=== PATIENT | male | born 1995 | race Caucasian/White ===

== ENCOUNTER 2021-12-15 06:22 | Inpatient (IN) ==
[2021-12-15] MEDS ORDERED: SODIUM CHLORIDE 0.9% 1000ML 1,000 ML IV SCH (06:45)
--- NOTE | 2021-12-15 07:14 | Emergency Department Note ---
History of Present Illness General Chief complaint: Seizure Stated complaint: Seizure Time Seen by Provider: 12/15/21 06:37 History of Present Illness 26-year-old male presents to the ED with a chief complaint of seizure-like activity. The patient symptoms started around 5 AM. He was with his boyfriend who was awoken by the patient vibrating and being stiff. He states that his eyes were open and he looked panicked. His initial seizure lasted for about a minute. EMS then witnessed also some stiffening that lasted for about a minute during transport. He was brought to the ED for evaluation. He does have history of some addiction and drug use in the past although he is believed to be clean. The patient's boyfriend has known him for about 7 months. No additional formation available. Patient is not able to provide information at this time. Home Medications Medication Instructions Recorded Confirmed Type sertraline 25 mg tablet 25 mg PO DAILY 12/15/21 12/15/21 History Allergies Allergy/AdvReac Type Severity Reaction Status Date / Time No Known Allergies Allergy Unverified 12/15/21 08:19 Past Med/Surg History Social History Smoking Status: Current every day smoker Tobacco Type: Cigarettes Preferred Language: Slovenian Feels Safe at Home: Yes Review of Systems A total of 10 systems reviewed and were otherwise negative Physical Exam Vital Signs Vital Signs - 24 hr 12/15/21 06:30 12/15/21 06:56 12/15/21 07:35 Temperature 37.2 C Temperature Source Oral Pulse Rate 125 H Pulse Rate [Finger] 111 H Pulse Rhythm [Finger] Regular Pulse Strength [Finger] Normal Respiratory Rate 19 17 Respiratory Effort / Characteristics Non-Labored Respiratory Depth Normal Blood Pressure 98/51 L Blood Pressure [Right Arm] 104/55 L Blood Pressure Mean 66 Blood Pressure Mean [Right Arm] 71 Blood Pressure Position [Right Arm] Lying Pulse Oximetry 97 96 94 Oxygen Delivery Method Room Air Room Air Room Air Sepsis Recent Fever Within 48 Hours No Sepsis New/Unexplained Change in Mental Status N/A Sepsis Action Taken by Nursing No Action Required 12/15/21 07:53 12/15/21 09:00 12/15/21 11:00 Temperature Temperature Source Pulse Rate Pulse Rate [Finger] 107 H 99 H 97 H Pulse Rhythm [Finger] Regular Regular Regular Pulse Strength [Finger] Normal Normal Normal Respiratory Rate 20 18 18 Respiratory Effort / Characteristics Non-Labored Non-Labored Non-Labored Respiratory Depth Normal Normal Normal Blood Pressure Blood Pressure [Right Arm] 104/62 113/75 120/80 Blood Pressure Mean Blood Pressure Mean [Right Arm] 76 87 93 Blood Pressure Position [Right Arm] Lying Sitting Lying Pulse Oximetry 97 98 98 Oxygen Delivery Method Room Air Room Air Room Air Sepsis Recent Fever Within 48 Hours Sepsis New/Unexplained Change in Mental Status Sepsis Action Taken by Nursing CONSTITUTIONAL/VITAL SIGNS: Reviewed / noted above. GENERAL: Non-toxic in appearance. INTEGUMENTARY: Warm, dry, and [place]. HEAD: Normocephalic. EYES: without scleral icterus or trauma. ENT/OROPHARYNX: clear and moist. No tongue injury. LYMPHADENOPATHY/NECK: Is supple without lymphadenopathy or meningismus. RESPIRATORY: Clear to auscultation bilaterally. No increased work of breathing. CARDIOVASCULAR: Regular rate and rhythm. GI/ABDOMEN: Soft and nontender. No organomegaly or pulsatile mass. No incontinence EXTREMITIES: Warm and well perfused. BACK: No CVA tenderness. NEUROLOGICAL: Patient opens his eyes and lightly responds but is very drowsy and difficult to get information from. PSYCHIATRIC: Able to assess MUSCULOSKELETAL: Normally developed with good muscle tone. TRIAGE NURSING DOCUMENTATION REVIEWED. Course Administered Medications Discontinued Medications Sodium Chloride (Nss 1000ml) 1,000 mls @ 999 mls/hr IV .Q1H1M [facility] Stop: 12/15/21 07:45 Last Infusion: 12/15/21 07:57 Dose: 999 mls/hr Documented by: [id number] Admin: 12/15/21 06:56 Dose: 999 mls/hr Documented by: [id number] Lidocaine HCl (Xylocaine 1%/Sod Bicarb 20 Ml Vial) Confirm Administered Dose 20 ml INFIL .STK-MED ONE Stop: 12/15/21 09:25 Last Admin: 12/15/21 09:53 Dose: Not Given Documented by: [id number] Ondansetron HCl (Ondansetron Inj 2 Mg/Ml 2 Ml Vial) 4 mg IV NOW STA Stop: 12/15/21 08:43 Last Admin: 12/15/21 08:45 Dose: 4 mg Documented by: [id number] Medical Decision Making Differential Diagnosis Differential includes acute cardiac dysrhythmia, microinfarction, CVA, TIA, dehydration, anemia, electrolyte disturbance, seizure, trauma, intracranial bleeding, acute vascular catastrophe, thoracic aortic dissection, PE, abdominal aortic aneurysm rupture, infection, hypoglycemia, overdose, trauma. Medical Records Attestation: I reviewed the patient's medical records. Home Medications Current Medication List: was personally reviewed by me Laboratory Data Attestation: I reviewed the patient's lab results. Result diagrams: 12/15/21 07:40 12/15/21 06:36 Lab Results 12/15/21 12/15/21 12/15/21 Range/Units 06:36 06:36 06:36 WBC Cancelled RBC Cancelled Hgb Cancelled Hct Cancelled MCV Cancelled MCH Cancelled MCHC Cancelled RDW Std Deviation Cancelled RDW Coeff of Susie Cancelled Plt Count Cancelled MPV Cancelled Immature Gran % (Auto) Cancelled Neut % (Auto) Cancelled Lymph % (Auto) Cancelled [place] % (Auto) Cancelled Eos % (Auto) Cancelled Baso % (Auto) Cancelled Neut # (Auto) Cancelled Lymph # (Auto) Cancelled [place] # (Auto) Cancelled Eos # (Auto) Cancelled Baso # (Auto) Cancelled Immature Gran # (Auto) Cancelled Absolute Nucleated RBC Cancelled Nucleated RBC % (auto) Cancelled Neutrophils % (Manual) Cancelled Band Neutrophils % Cancelled Lymphocytes % (Manual) Cancelled Prolymphocyte % Cancelled Reactive Lymphs % (Man) Cancelled Monocytes % (Manual) Cancelled Eosinophils % (Manual) Cancelled Basophils % (Manual) Cancelled Metamyelocytes % (Man) Cancelled Myelocytes % (Man) Cancelled Promyelocytes % (Man) Cancelled Blast Cells % (Manual) Cancelled Plasma Cell % (Manual) Cancelled Other Cells % Cancelled Nucleated RBC % Cancelled Neutrophils # (Manual) Cancelled Band Neutrophils # Cancelled Total Absolute Neuts Cancelled Lymphocytes # (Manual) Cancelled Prolymphocyte # Cancelled Reactive Lymphs # Cancelled Total Abs Lymphocytes Cancelled Monocytes # (Manual) Cancelled Eosinophils # (Manual) Cancelled Basophils # (Manual) Cancelled Metamyelocytes # (Man) Cancelled Myelocytes # (Manual) Cancelled Promyelocytes # (Man) Cancelled Blast Cells # (Man) Cancelled Plasma Cell # (Manual) Cancelled Other Cells # Cancelled Nucleated RBCs # (Man) Cancelled Hypersegmented Neuts Cancelled Hyposegmented Neuts Cancelled Hypogranular Neuts Cancelled Large Granular Lymphs Cancelled # Lrg Granular Lymphs Cancelled Hairy Cells Cancelled Smudge Cells Cancelled Toxic Granulation Cancelled Toxic Vacuolation Cancelled Dohle Bodies Cancelled Lata Rods Cancelled Platelet Estimate Cancelled Hypogranular Platelets Cancelled Clumped Platelets Cancelled Giant Platelets Cancelled Platelet Satelliting Cancelled RBC Morphology Cancelled Polychromasia Cancelled Hypochromasia Cancelled Poikilocytosis Cancelled Basophilic Stippling Cancelled Anisocytosis Cancelled Microcytosis Cancelled Macrocytosis Cancelled Spherocytes Cancelled Pappenheimer Bodies Cancelled Sickle Cells Cancelled Target Cells Cancelled Tear Drop Cells Cancelled Ovalocytes Cancelled Stomatocytes Cancelled Sa[place] Bodies Cancelled Echinocytes Cancelled Acanthocytes (Spur) Cancelled Rouleaux Cancelled RBC Agglutinates Cancelled Schistocytes Cancelled RBC Morph Comment Cancelled Sezary Cell Cancelled Sodium 137 (136-145) mmol/L Potassium 3.6 (3.5-5.1) mmol/L Chloride 106 (98-107) mmol/L Carbon Dioxide 20 L (21-32) mmol/L Anion Gap 11 (3-11) BUN 5 L (6-23) mg/dl Creatinine 1.06 (0.6-1.4) mg/dl Est Cr Clr Drug Dosing 102.2 ml/min Est GFR ( Amer) 111.7 ml/min Est GFR (Non-Af Amer) 96.4 ml/min BUN/Creatinine Ratio 4.7 L (10-20) Glucose 112 H (70-99(Fasting)) mg/dl Calcium 8.6 (8.5-10.1) mg/dl Magnesium 2.4 (1.7-2.4) mg/dl Total Bilirubin 0.4 (0.2-1.0) mg/dl AST 12 L (13-39) U/L ALT 10 (7-52) U/L Alkaline Phosphatase 65 (34-104) U/L Total Protein 7.3 (6.0-8.3) gm/dl Albumin 4.3 (3.4-5.0) gm/dl Globulin 3.0 (2.5-4.0) gm/dl Albumin/Globulin Ratio 1.4 (0.9-2) TSH 1.152 (0.300-4.500) uIu/ml Urine Color Urine Appearance (Clear) Urine pH (4.5-7.5) Ur Specific [place] (1.000-1.030) Urine Protein (Negative) Urine Glucose (UA) (Negative) Urine Ketones (Negative) Urine Blood (Negative) Urine Nitrite (Negative) Urine Bilirubin (Negative) Urine Urobilinogen (Negative) Ur Leukocyte Esterase (Negative) Urine WBC (Auto) (0-5) /hpf Urine RBC (Auto) (0-4) /hpf U Hyaline Cast (Auto) (0-5) /lpf U Epithel Cells (Auto) (0-5) /lpf Urine Bacteria (Auto) (Negative) Ur Renal Epithelial Cell Amorphous Sediment (None Prsent) Urine Mucus (None Prsent) Salicylates (3.0-30) mg/dl Urine Opiates Screen (Neg) Ur Methadone, Qual (Neg) Acetaminophen (10-30) ug/ml Urine Barbiturates (Neg) Ur Phencyclidine (PCP) (Neg) U Amphetamin/Meth Scrn (Neg) MDMA (Ecstasy) Screen (Neg) U Benzodiazepines Scrn (Neg) Ur Cocaine Metabolite (Neg) U Marijuana (THC) Screen (Neg) Ethyl Alcohol mg/dL (<10.0) mg/dl 12/15/21 12/15/21 12/15/21 Range/Units 06:36 06:36 07:40 WBC 9.06 RBC 4.02 L Hgb 12.7 L Hct 36.3 L MCV 90.3 MCH 31.6 MCHC 35.0 RDW Std Deviation 42.6 RDW Coeff of Susie 12.9 Plt Count 216 MPV 10.9 H Immature Gran % (Auto) 0.3 Neut % (Auto) 71.2 Lymph % (Auto) 17.4 [place] % (Auto) 10.9 Eos % (Auto) 0.1 Baso % (Auto) 0.1 Neut # (Auto) 6.44 Lymph # (Auto) 1.58 [place] # (Auto) 0.99 H Eos # (Auto) 0.01 Baso # (Auto) 0.01 Immature Gran # (Auto) 0.03 H Absolute Nucleated RBC Nucleated RBC % (auto) Neutrophils % (Manual) Band Neutrophils % Lymphocytes % (Manual) Prolymphocyte % Reactive Lymphs % (Man) Monocytes % (Manual) Eosinophils % (Manual) Basophils % (Manual) Metamyelocytes % (Man) Myelocytes % (Man) Promyelocytes % (Man) Blast Cells % (Manual) Plasma Cell % (Manual) Other Cells % Nucleated RBC % Neutrophils # (Manual) Band Neutrophils # Total Absolute Neuts Lymphocytes # (Manual) Prolymphocyte # Reactive Lymphs # Total Abs Lymphocytes Monocytes # (Manual) Eosinophils # (Manual) Basophils # (Manual) Metamyelocytes # (Man) Myelocytes # (Manual) Promyelocytes # (Man) Blast Cells # (Man) Plasma Cell # (Manual) Other Cells # Nucleated RBCs # (Man) Hypersegmented Neuts Hyposegmented Neuts Hypogranular Neuts Large Granular Lymphs # Lrg Granular Lymphs Hairy Cells Smudge Cells Toxic Granulation Toxic Vacuolation Dohle Bodies Lata Rods Platelet Estimate Hypogranular Platelets Clumped Platelets Giant Platelets Platelet Satelliting RBC Morphology Polychromasia Hypochromasia Poikilocytosis Basophilic Stippling Anisocytosis Microcytosis Macrocytosis Spherocytes Pappenheimer Bodies Sickle Cells Target Cells Tear Drop Cells Ovalocytes Stomatocytes Saenz-[place] Bodies Echinocytes Acanthocytes (Spur) Rouleaux RBC Agglutinates Schistocytes RBC Morph Comment Sezary Cell Sodium (136-145) mmol/L Potassium (3.5-5.1) mmol/L Chloride (98-107) mmol/L Carbon Dioxide (21-32) mmol/L Anion Gap (3-11) BUN (6-23) mg/dl Creatinine (0.6-1.4) mg/dl Est Cr Clr Drug Dosing ml/min Est GFR ( Amer) ml/min Est GFR (Non-Af Amer) ml/min BUN/Creatinine Ratio (10-20) Glucose (70-99(Fasting)) mg/dl Calcium (8.5-10.1) mg/dl Magnesium (1.7-2.4) mg/dl Total Bilirubin (0.2-1.0) mg/dl AST (13-39) U/L ALT (7-52) U/L Alkaline Phosphatase (34-104) U/L Total Protein (6.0-8.3) gm/dl Albumin (3.4-5.0) gm/dl Globulin (2.5-4.0) gm/dl Albumin/Globulin Ratio (0.9-2) TSH (0.300-4.500) uIu/ml Urine Color Urine Appearance (Clear) Urine pH (4.5-7.5) Ur Specific [place] (1.000-1.030) Urine Protein (Negative) Urine Glucose (UA) (Negative) Urine Ketones (Negative) Urine Blood (Negative) Urine Nitrite (Negative) Urine Bilirubin (Negative) Urine Urobilinogen (Negative) Ur Leukocyte Esterase (Negative) Urine WBC (Auto) (0-5) /hpf Urine RBC (Auto) (0-4) /hpf U Hyaline Cast (Auto) (0-5) /lpf U Epithel Cells (Auto) (0-5) /lpf Urine Bacteria (Auto) (Negative) Ur Renal Epithelial Cell Amorphous Sediment (None Prsent) Urine Mucus (None Prsent) Salicylates < 3.0 L (3.0-30) mg/dl Urine Opiates Screen (Neg) Ur Methadone, Qual (Neg) Acetaminophen < 3 L (10-30) ug/ml Urine Barbiturates (Neg) Ur Phencyclidine (PCP) (Neg) U Amphetamin/Meth Scrn (Neg) MDMA (Ecstasy) Screen (Neg) U Benzodiazepines Scrn (Neg) Ur Cocaine Metabolite (Neg) U Marijuana (THC) Screen (Neg) Ethyl Alcohol mg/dL < 10.0 (<10.0) mg/dl 12/15/21 12/15/21 Range/Units 08:03 08:03 WBC RBC Hgb Hct MCV MCH MCHC RDW Std Deviation RDW Coeff of Susie Plt Count MPV Immature Gran % (Auto) Neut % (Auto) Lymph % (Auto) [place] % (Auto) Eos % (Auto) Baso % (Auto) Neut # (Auto) Lymph # (Auto) [place] # (Auto) Eos # (Auto) Baso # (Auto) Immature Gran # (Auto) Absolute Nucleated RBC Nucleated RBC % (auto) Neutrophils % (Manual) Band Neutrophils % Lymphocytes % (Manual) Prolymphocyte % Reactive Lymphs % (Man) Monocytes % (Manual) Eosinophils % (Manual) Basophils % (Manual) Metamyelocytes % (Man) Myelocytes % (Man) Promyelocytes % (Man) Blast Cells % (Manual) Plasma Cell % (Manual) Other Cells % Nucleated RBC % Neutrophils # (Manual) Band Neutrophils # Total Absolute Neuts Lymphocytes # (Manual) Prolymphocyte # Reactive Lymphs # Total Abs Lymphocytes Monocytes # (Manual) Eosinophils # (Manual) Basophils # (Manual) Metamyelocytes # (Man) Myelocytes # (Manual) Promyelocytes # (Man) Blast Cells # (Man) Plasma Cell # (Manual) Other Cells # Nucleated RBCs # (Man) Hypersegmented Neuts Hyposegmented Neuts Hypogranular Neuts Large Granular Lymphs # Lrg Granular Lymphs Hairy Cells Smudge Cells Toxic Granulation Toxic Vacuolation Dohle Bodies Lata Rods Platelet Estimate Hypogranular Platelets Clumped Platelets Giant Platelets Platelet Satelliting RBC Morphology Polychromasia Hypochromasia Poikilocytosis Basophilic Stippling Anisocytosis Microcytosis Macrocytosis Spherocytes Pappenheimer Bodies Sickle Cells Target Cells Tear Drop Cells Ovalocytes Stomatocytes Saenz-[place] Bodies Echinocytes Acanthocytes (Spur) Rouleaux RBC Agglutinates Schistocytes RBC Morph Comment Sezary Cell Sodium (136-145) mmol/L Potassium (3.5-5.1) mmol/L Chloride (98-107) mmol/L Carbon Dioxide (21-32) mmol/L Anion Gap (3-11) BUN (6-23) mg/dl Creatinine (0.6-1.4) mg/dl Est Cr Clr Drug Dosing ml/min Est GFR ( Amer) ml/min Est GFR (Non-Af Amer) ml/min BUN/Creatinine Ratio (10-20) Glucose (70-99(Fasting)) mg/dl Calcium (8.5-10.1) mg/dl Magnesium (1.7-2.4) mg/dl Total Bilirubin (0.2-1.0) mg/dl AST (13-39) U/L ALT (7-52) U/L Alkaline Phosphatase (34-104) U/L Total Protein (6.0-8.3) gm/dl Albumin (3.4-5.0) gm/dl Globulin (2.5-4.0) gm/dl Albumin/Globulin Ratio (0.9-2) TSH (0.300-4.500) uIu/ml Urine Color Yellow Urine Appearance Cloudy A (Clear) Urine pH 7.0 (4.5-7.5) Ur Specific [place] 1.017 (1.000-1.030) Urine Protein Trace H (Negative) Urine Glucose (UA) Negative (Negative) Urine Ketones Negative (Negative) Urine Blood Negative (Negative) Urine Nitrite Negative (Negative) Urine Bilirubin Negative (Negative) Urine Urobilinogen Positive H (Negative) Ur Leukocyte Esterase Negative (Negative) Urine WBC (Auto) 1-5 (0-5) /hpf Urine RBC (Auto) 0-4 (0-4) /hpf U Hyaline Cast (Auto) 0 (0-5) /lpf U Epithel Cells (Auto) >30 H (0-5) /lpf Urine Bacteria (Auto) Negative (Negative) Ur Renal Epithelial Cell Not Reportable Amorphous Sediment Present A (None Prsent) Urine Mucus Present A (None Prsent) Salicylates (3.0-30) mg/dl Urine Opiates Screen Neg (Neg) Ur Methadone, Qual Neg (Neg) Acetaminophen (10-30) ug/ml Urine Barbiturates Neg (Neg) Ur Phencyclidine (PCP) Neg (Neg) U Amphetamin/Meth Scrn Neg (Neg) MDMA (Ecstasy) Screen Pos H (Neg) U Benzodiazepines Scrn Neg (Neg) Ur Cocaine Metabolite Neg (Neg) U Marijuana (THC) Screen Neg (Neg) Ethyl Alcohol mg/dL (<10.0) mg/dl Imaging Data Radiologist's Impression: Head CT 12/15/21 06:[address] DOSE: 614.27 mGy.cm HISTORY: Seizure. TECHNIQUE: Multiaxial CT images of the head were performed without the use of i ntravenous contrast. Automated exposure control was utilized for this study. A dose lowering technique was utilized adhering to the principles of ALARA. Comparison: None. Findings: The paranasal sinuses and mastoid air cells are clear. There are p oststernotomy changes in the maxilla which are partially visualized. Motion artifact at the high convexity. Similar-appearing punctate hyperdense foci within the brain consistent with artifact. The calvarium and skull base are intact. The ventricles and sulci are within normal limits. There is no mass, hematoma, midline shift, or acute infarct. Impression: No acute intracranial abnormality. Similar-appearing punctate hyperdense foci within the brain consistent with artifact. ACT 112: Negative or not required by law. Electronically signed by: Evelio Vasquez M.D. 12/15/2021 7:46 AM ECG Data Attestation: I personally reviewed and interpreted this ECG as follows: Additional Comments: Twelve-lead EKG: Sinus tach at a rate of 117. No ST elevation. No PVCs. Normal QTC. MDM Narrative 26-year-old male presents with seizure-like activity in the setting of possible drug use. No history of seizures. No trauma. Previous history of addiction. Vital signs reveal tachycardia.The patient's CT scan of the brain did not show acute process. CBC and chemistry panel was unremarkable. TSH was normal. EKG showed a sinus tach. Tylenol and salicylates are negative. Alcohol was negative. Toxicology screen was positive for MDMA. During the patient's ED stay, he did have one episode where he began to stare. There was no focal or tonic-clonic seizure activity. After the patient was here for about 4 or more hours, the patient began to become more alert and awake. He is felt to be stable for discharge home. Impression & Plan Altered mental status, Seizure-like activity Discharge Plan Visit Data Chief Complaint: Seizure Stated Complaint: Seizure ED Provider: Medardo Price Discharge Problem: Altered mental status, Seizure-like activity Patient Disposition: Home - Self-Care Discharge Instructions Activity Restrictions/Additional Instructions: Follow-up with your doctor for further care and evaluation in 1-2 days if symptoms persist. Return to the emergency department for worsening or new symptoms or any concerns. You have been examined and treated today on an emergency basis only. This is not a substitute for, or an effort to provide, complete comprehensive medical care. It is impossible to recognize and treat all injuries or illnesses in a single emergency department visit. It is therefore important that you follow up closely with your doctor. Call as soon as possible for an appointment. Forms Stand Alone Forms: My [facility], Virtual Emergency Department, Important Visit Information Prescriptions Prescriptions: No Action sertraline 25 mg tablet 25 mg PO DAILY RF: 0 Referrals Referrals: PCP,NO [Physician] - Discharge Problem: Altered mental status Qualifiers: Altered mental status type: transient alteration of awareness Qualified Code(s): R40.4 - Transient alteration of awareness
[2021-12-15 07:19] LABS: Albumin Globulin Ratio 1.4 (0.9-2); Albumin Level 4.3 gm/dl (3.4-5.0); BUN Creatinine Ratio 4.7 (10-20); Bilirubin,Total 0.4 mg/dl (0.2-1.0); Calcium 8.6 mg/dl (8.5-10.1); Creatinine Clr Calc Pharmacy 102.2 ml/min; Est GFR (African American) 111.7 ml/min; Est GFR (Non-African American) 96.4 ml/min; Magnesium 2.4 mg/dl (1.7-2.4); Potassium 3.6 mmol/L (3.5-5.1); Total Protein 7.3 gm/dl (6.0-8.3)
--- NOTE | 2021-12-15 07:47 | CT Scan Report ---
HEAD CT NONCONTRAST CT DOSE: 614.27 mGy.cm HISTORY: Seizure. TECHNIQUE: Multiaxial CT images of the head were performed without the use of intravenous contrast. A utomated exposure control was utilized for this study. A dose lowering technique was utilized adheri ng to the principles of ALARA. Comparison: None. Findings: The paranasal sinuses and mastoid air cells are clear. There are poststernotomy changes in the maxilla which are partially visualized. Motion artifact at the high convexity. Similar-appearing punctate hyperdense foci within the brain consistent with artifact. The calvarium and skull base are intact. The ventricles and sulci are within normal limits. There is no mass, hematoma, midline shift, or acute infarct. Impression: No acute intracranial abnormality. Similar-appearing punctate hyperdense foci within the brain consis tent with artifact. ACT 112: Negative or not required by law. Electronically signed by: Evelio Vasquez M.D. 12/15/2021 7:46 AM
[2021-12-15 07:49] LABS: Basophils # (auto) 0.01 K/uL (0-0.2); Basophils % (auto) 0.1 %; Eosinophils # (auto) 0.01 K/uL (0-0.5); Eosinophils % (auto) 0.1 %; Hematocrit (blood only) 36.3 % (42-52); Hemoglobin 12.7 g/dL (14.0-18.0); Immature Granulocytes # (auto) 0.03 K/uL (0.00-0.02); Immature Granulocytes % (auto) 0.3 %; Lymphocytes # (auto) 1.58 K/uL (1.2-3.4); Lymphocytes % (auto) 17.4 %; Mean Corpuscular Hemoglobin 31.6 pg (25-34); Mean Corpuscular Volume 90.3 fL (80-100); Mean Platelet Volume 10.9 fL (7.4-10.4); Monocytes # (auto) 0.99 K/uL (0.11-0.59); Monocytes % (auto) 10.9 %; Neutrophils # (auto) 6.44 K/uL (1.4-6.5); Neutrophils % (auto) 71.2 %; Platelet Count 216 K/uL (130-400); RDW Coefficient of Variation 12.9 % (11.5-14.5); RDW Standard Deviation 42.6 fL (36.4-46.3); Red Blood Count 4.02 M/uL (4.7-6.1); White Blood Count 9.06 K/uL (4.8-10.8)
[2021-12-15 08:22] LABS: Appearance Urine Cloudy (Clear); Bacteria Urine Automated Negative (Negative); Bilirubin Urine Negative (Negative); Blood Urine Negative (Negative); Color Urine Yellow; Epithelial Cell Urine Auto >30 /lpf (0-5); Glucose Urine UA Negative (Negative); Ketones Urine Negative (Negative); Leukocyte Esterase Urine Negative (Negative); Nitrite Urine Negative (Negative); Protein Urine Trace (Negative); RBC Urine Automated 0-4 /hpf (0-4); Specific Gravity Urine 1.017 (1.000-1.030); Urobilinogen Urine Positive (Negative)
[2021-12-15 08:23] LABS: Acetaminophen < 3 ug/ml (10-30); Salicylate < 3.0 mg/dl (3.0-30)
[2021-12-15 08:39] LABS: Cast Urine Automated 0 /lpf (0-5); Mucus Urine Present (None Prsent)
[2021-12-15 08:41] LABS: Amorphous Sediment Urine Present (None Prsent)
[2021-12-15] MEDS ORDERED: ONDANSETRON INJ 2 MG/ML 2 ML VIAL IV STA (08:42)
[2021-12-15 08:53] LABS: Amphetamines+Metham, Urine Neg (Neg); Barbiturates, Urine Neg (Neg); Benzodiazepine, Urine Neg (Neg); Cocaine, Urine Neg (Neg); MDMA (Ecstacy), Urine Pos (Neg); Methadone, Urine Neg (Neg); Opiate, Urine Neg (Neg); Phencyclidine, Urine Neg (Neg)
--- NOTE | 2021-12-15 09:15 | Electrocardiogram Report ---
Test Reason : Blood Pressure : / mmHG Vent. Rate : 117 BPM Atrial Rate : 117 BPM P-R Int : 140 ms QRS Dur : 096 ms QT Int : 356 ms P-R-T Axes : 068 075 058 degrees QTc Int : 496 ms Sinus tachycardia Otherwise normal ECG No previous ECGs available Confirmed by Checo Malagon ([id number]) on 12/15/2021 9:14:57 AM Referred By: Confirmed By:Checo Malagon
[2021-12-15] MEDS ORDERED: XYLOCAINE 1%/SOD BICARB 20 ML VIAL INFIL ONE (09:24)
--- NOTE | 2021-12-15 14:31 | History & Physical Report ---
Date of Service December 15, 2021 Assessment & Plan (1) Seizure-like activity: Plan: Patient is 26-year-old male with PMH PTSD, anxiety, possible history TBI in 1997 (reports mother with history of Munchhausen by proxy and patient is unsure of his exact past medical history) presented to ER for reported seizure-like activity today described as several episodes of body stiffening, staring followed by episode of drowsiness and slurred speech. Episodes last 10-15 second s. No reported seizure activity in past. In ER pt afebrile, sinus tachycardia, BP stable, no hypoxia. No leukocytosis, no significant electrolyte abnormality Urine drug screen positive MDMA - further testing pending. Negative ETOH, acetaminophen, salicylates CT head: no acute intracranial abnormality In ER was given 1L NSS Admit tele Seizure precautions NPO for now Neuro checks EEG Neurology consult Psychiatry consult CBC, BMP in am (2) PTSD (post-traumatic stress disorder): (3) Anxiety: Plan: Reported history PTSD, anxiety Continue sertraline DVT Prophylaxis SCDs Follows with Dr Lorelei Alonso PA-C for routine care Pt was seen and care coordinated with Dr Obregon. See addendum History of Present Illness Chief Complaint: Seizure-like activity Primary Care Provider: Lorelei Alonso PA-C Patient is 26-year-old male with PMH PTSD, anxiety, possible history TBI in 1997 (reports mother with history of Munchhausen by proxy and patient is unsure of his exact past medical history) presented to ER for reported seizure-like activity today. History obtained from patient's boyfriend who is at bedside, and outpatient chart review. Patient's boyfriend states he picked him up last night and he seemed to be "a little off" and off balance, and drowsy. He reports that he asked patient if he took any medications or drugs, alcohol, or attempted to harm himself and patient reported "no". He states he slept in the car on the way home and when woke up seemed to be back to baseline. Reports went to bed and this morning woke up at 5 AM and patient was noted to be stiffening his body in bed. Patient boyfriend reports that patient often has night terrors where he will be thrashing around and when he is awaken the thrashing will stop. Reports when he woke patient up this morning patient seemed to be "out of it" and not talking. It is reported that while patient being transferred to hospital by EMS he had approximately 10-second episode of stiffening and staring off. In ER is reported by ER staff the patient had couple episodes of 10 to 15 seconds body stiffening and staring, followed by patient appearing drowsy and having slurred and mumbled speech. Last episode was 1350 today. Currently patient is awake, appears drowsy. Is able to answer some questions however is mumbling his speech. No reported loss of control of bowel or bladder. Boyfriend thinks patient may have bitten his tongue. Reports episode of emesis today. Boyfriend reports patient has been having intermittent dizzy episodes for months. Has seen PCP however he reports patient did not have medical insurance until 12/07/21, so limited workup had been completed. Reports is to follow up with [facility] in the future. Denies any known fever/chills, reported SOB or cough or diarrhea. States patient had one COVID-10 vaccine in 02/2021. Boyfriend reports patient previously used marijuana, thinks he last used in 08/2021. He is unaware of illicit drug use, however he does not live with patient so he isn't sure. He reports patient takes sertraline 25mg daily. He states he used to take other psych medication. Williamiend reports patient is to follow up with out patient psychiatry. Further ROS, PMH, Social history, unobtainable at this time secondary to patients slurred speech. Outpatient records reviewed on 11/25/2021 had negative urine tox screen Negative HIV testing on 07/28/2021 and 10/28/2021, negative GC, CT, RPR in 10/2021 A1c: 5.4 in 10/30 14 day negative stripper in 11/30: CONCLUSIONS: Final Interpretation Patient had a min HR of 48 bpm, max HR of 190 bpm, and avg HR of 78 bpm. Predominant underlying rhythm was Sinus Rhythm. Isolated SVEs were rare (<1.0%), and no SVE Couplets or SVE Triplets were present. Isolated VEs were rare (<1.0%), and no VE Couplets or VE Triplets were present. The patient submitted 16 event markers which correlated with sinus and sinus tachycardia only Allergies Allergy/AdvReac Type Severity Reaction Status Date / Time erythromycin base Allergy Anaphylaxis Verified 12/15/21 14:16 Sulfa (Sulfonamide Allergy Anaphylaxis Verified 12/15/21 14:16 Antibiotics) Home Medications Medication Instructions Recorded Confirmed Type ondansetron 4 mg disintegrating 4 mg PO Q6 PRN #14 tab 12/15/21 Rx tablet sertraline 25 mg tablet 25 mg PO DAILY 12/15/21 12/15/21 History Past Med/Surg History Medical History (Updated 12/15/21 @ 15:48 by Zeenat Anderson PA-C) Anxiety PTSD (post-traumatic stress disorder) Surgical History (Updated 12/15/21 @ 15:48 by Zeenat Anderson PA-C) H/O nasal septoplasty History maxillofacial surgery - h/o underbite Family History (Updated 12/15/21 @ 15:49 by Zeenat Anderson PA-C) Brother Diabetes DM I Grandfather (Maternal) Hypertension Mother Lupus Social History Smoking Status: Current every day smoker Tobacco Type: Cigarettes Second Hand Exposure: Yes; Do You Dip or Chew Tobacco: No; Tobacco Cessation Education Requested by Patient: No Hx Alcohol Use: No Hx Substance Use: Yes Last Used Substance Other:: >5 years ago Preferred Language: Montenegrin Communication Ability: Impaired Communication Ability Comment: At baseline, pt has no deficits. Currently, pt is difficult to understand Executive Director Of Marketing Required: No Beliefs That Will Affect Care: None Current Living Situation: Spouse Feels Safe at Home: Yes Safety Concerns: Feels Safe At This Time Assistive Devices: None Review of Systems Review of Systems: Unobtainable due to cognitive status Physical Exam Physical Exam: General: no acute distress, WDWN Head: normocephalic, atraumatic Eyes: PERRL, EOM's intact, conjunctiva non-injected, anicteric ENT: normal inspection external ears, nose, mucous membranes moist Neck: supple, trachea midline Lungs: clear, no respiratory distress, no wheezing/rhonchi/rales CV: tachycardia, rate 108, regular rhythm, no murmur, no pretibial edema Abd: normal BS, soft, non-tender Ext: no cyanosis, no erythema, no calf tenderness Neuro: Drowsy, but alert and oriented to 3. Has slurred speech currently and uses fingers to say the date. face is strong and symmetric, tongue midline, no lacerations noted, shoulder shrug intact, patient hesistant to test bulb inspector strength, after repeat asking, bulb inspector strength intact bilaterally, slow to move extremities however is able to do so and strength upper and lower extremities 5/5 Skin: warm, dry, +old healed linear scars to forearms and thighs Results & Data Results & Data ([facility]) Vital Signs (Past 12 Hours) Vital Signs Temp Pulse Pulse Resp BP BP Pulse Ox 12/15/21 13:50 127 H 20 106/48 L 93 12/15/21 11:00 97 H 18 120/80 98 12/15/21 09:00 99 H 18 113/75 98 12/15/21 07:53 107 H 20 104/62 97 12/15/21 07:35 111 H 17 104/55 L 94 12/15/21 06:56 96 12/15/21 06:30 37.2 C 125 H 19 98/51 L 97 Laboratory Results Short CBC 12/15/21 12/15/21 Range/Units 06:36 07:40 WBC Cancelled 9.06 Hgb Cancelled 12.7 L Hct Cancelled 36.3 L Plt Count Cancelled 216 BMP 12/15/21 06:36 Sodium 137 Potassium 3.6 Chloride 106 Carbon Dioxide 20 L BUN 5 L Creatinine 1.06 Glucose 112 H Calcium 8.6 Liver Function 12/15/21 Range/Units 06:36 Total Bilirubin 0.4 (0.2-1.0) mg/dl AST 12 L (13-39) U/L ALT 10 (7-52) U/L Alkaline Phosphatase 65 (34-104) U/L Albumin 4.3 (3.4-5.0) gm/dl Urine 12/15/21 Range/Units 08:03 Urine Color Yellow Urine Appearance Cloudy A (Clear) Urine pH 7.0 (4.5-7.5) Ur Specific [place] 1.017 (1.000-1.030) Urine Protein Trace H (Negative) Urine Glucose (UA) Negative (Negative) Diagnostic Findings Head CT 12/15/21 06:[address] DOSE: 614.27 mGy.cm HISTORY: Seizure. TECHNIQUE: Multiaxial CT images of the head were performed without the use of intravenous contrast. Automated exposure control was utilized for this study. A dose lowering technique was utilized adhering to the principles of ALARA. Comparison: None. Findings: The paranasal sinuses and mastoid air cells are clear. There are poststernotomy changes in the maxilla which are partially visualized. Motion artifact at the high convexity. Similar-appearing punctate hyperdense foci within the brain consistent with artifact. The calvarium and skull base are intact. The ventricles and sulci are within normal limits. There is no mass, hematoma, midline shift, or acute infarct. Impression: No acute intracranial abnormality. Similar-appearing punctate hyperdense foci within the brain consistent with artifact. ACT 112: Negative or not required by law. Electronically signed by: Evelio Vasquez M.D. 12/15/2021 7:46 AM Supervising Physician Co-Signing Physician Notes Attending addendum: The patient was seen and examined in the emergency room in presence of his boyfriend He has significant past medical history including PTSD, anxiety and also remote history of possible traumatic brain injury in 1997 apparently has been on sertraline for anxiety/depression He was brought into the emergency room with possible seizure-like activity , generalized weakness and garbled speech which has been going on about 3 hours for now He has been at his usual state of health with normal ambulation and speech 3 hours prior to arrival as per the boyfriend He was not able to give a complete history and his present complaints due to garbled speech and also generalized weakness On examination We can lethargic in bed without any acute distress Hemodynamically stable with tachycardia of 106/min Chestdecreased breath sounds bilaterally but no wheezing or crackles HeartS1-S2, regular Abdomenbenign Extremitiesno edema CNSalert and awake. Drowsy and falls to sleep quite easily. Tries to talk but cannot continue. Pupils are normal and reacting and no eye deviation and no facial asymmetry. Generally weak without any focal sensory and motor deficit. His admission labs, EKG and imaging studies reviewed Noted to have urine tox screen positive for ecstasy No evidence of any infection at this time Questionable seizure-like episodes which lasted about 10 to 40 seconds and associated with flinging type of movements involving the extremities followed by calmness for about 5 minutes and then becomes normalized without any history of self injury, or incontinence. We will consult neurology and psychiatry Agree with assessment and plan as outlined above by SUZAN Sheets DR
[2021-12-15] MEDS ORDERED: ACETAMINOPHEN 325 MG TAB PO PRN (16:14)
--- NOTE | 2021-12-15 18:53 | XRay Report ---
XR chest 1V portable CLINICAL HISTORY: R/O Pneumonia TECHNIQUE: Single frontal radiograph of the chest was obtained. Comparison: None available at the time of this dictation. FINDINGS: No lines and tubes are seen. The cardiomediastinal silhouette is normal. The lungs are clear. No evid ence of pleural effusion or pneumothorax. IMPRESSION: No acute chest disease. ACT 112: Negative or not required by law. Electronically signed by: Stuart Nielson M.D. 12/15/2021 6:52 PM
[2021-12-15] MEDS ORDERED: levETIRAcetam 1,000 MG in 0.9 % SODIUM CHLORIDE 100 ML IV ONE (20:30)
--- NOTE | 2021-12-15 23:02 | Communication Note ---
Date of Service: December 15, 2021
[2021-12-15] MEDS: NSS + 20MEQ KCL 20 MEQ/1,000 ML BAG IV SCH (23:43)
[2021-12-16 07:12] LABS: Hematocrit (blood only) 34.6 % (42-52); Hemoglobin 11.8 g/dL (14.0-18.0); Mean Corpuscular Hemoglobin 31.1 pg (25-34); Mean Corpuscular Hgb Conc 34.1 g/dL (32-36); Mean Corpuscular Volume 91.1 fL (80-100); Mean Platelet Volume 11.1 fL (7.4-10.4); Platelet Count 200 K/uL (130-400); RDW Coefficient of Variation 13.6 % (11.5-14.5); RDW Standard Deviation 45.3 fL (36.4-46.3); White Blood Count 9.54 K/uL (4.8-10.8)
[2021-12-16] MEDS: NSS + 20MEQ KCL 20 MEQ/1,000 ML BAG IV SCH ×2 (07:35→16:31)
[2021-12-16 07:43] LABS: BUN Creatinine Ratio 5.7 (10-20); Calcium 8.4 mg/dl (8.5-10.1); Creatinine Clr Calc Pharmacy 99.8 ml/min; Est GFR (Non-African American) 97.5 ml/min
--- NOTE | 2021-12-16 08:18 | Neurology Consultation ---
Date of Consultation December 16, 2021 Assessment & Plan (1) Seizure-like activity: 1. EEG preminary read no seizure focus 2. MRI brain with and without- r/o seizure focus 3. Keppra loaded in ED and continuing 500 mg q 12 hours 4. no driving for 6 months from last seizure date, no heights, no bathing or swimming alone 5. out patient 72 hour EEG 6. psychiatry for further management of psych issues. (2) PTSD (post-traumatic stress disorder): (3) Anxiety: Supervising Physician Co-Signing Physician Notes Patient was seen and examined. Mother and at bedside. Patient sleeping but following simple commands. Suspect provoked seizure due to trazadone overdose per discussion with . No prior Hx of seizure or childhood epilepsy. Not to have GTC seizure yesterday follow with postical period. On examine abrasion to lip. No clonus. Toes down going. Cuevas negative. tongue midline. Recommend to continue Keppra 500 mg BID for now. Bedside EEG normal. Will need repeat EEG as outpatient likely 72 hour ambulatory. If no further seizures in 6-12 months can stop the Keppra. Discussed with family and agree to plan of care. Patient has neurology apt as outpatient already scheduled. Please page me with any additional questions or concerns. History of Present Illness Reason for Consultation: Seizure like activity Requesting Physician: Milton Gutierres MD Attending Physician: Milton Gutierres MD History of Present Illness Ramana is 26 year old male with PMH- PTSD, anxiety, possible history TBI in 1997 (reports mother with history of M[place]haus[place] by proxy and patient is unsure of his exact past medical history) presented to [facility] 12/15/2021 ER for reported seizure-like activity today described as several episodes of body stiffening, staring followed by episode of drowsiness and slurred speech. Episodes last 10- 15 seconds. No reported seizure activity in past. He had 2 episodes of arm flinging which were witness. He does wake with deep stimulation and answers most questions appropriately denies pain, or weakness. 1 ppd smoker, no EtoH use, no other drugs, +caffeine (soda) Allergies Allergy/AdvReac Type Severity Reaction Status Date / Time erythromycin base Allergy Anaphylaxis Verified 12/15/21 14:16 Sulfa (Sulfonamide Allergy Anaphylaxis Verified 12/15/21 14:16 Antibiotics) Home Medications Medication Instructions Recorded Confirmed Type ondansetron 4 mg disintegrating 4 mg PO Q6 PRN #14 tab 12/15/21 Rx tablet sertraline 25 mg tablet 25 mg PO DAILY 12/15/21 12/15/21 History Patient History Medical History Anxiety PTSD (post-traumatic stress disorder) Surgical History H/O nasal septoplasty History maxillofacial surgery - h/o underbite Family History Brother Diabetes DM I Grandfather (Maternal) Hypertension Mother Lupus Social History Smoking Status: Current every day smoker Tobacco Type: Cigarettes Second Hand Exposure: Yes; Do You Dip or Chew Tobacco: No; Tobacco Cessation Education Requested by Patient: No Hx Alcohol Use: No Hx Substance Use: Yes Last Used Substance Other:: >5 years ago Preferred Language: Omani Communication Ability: Impaired Communication Ability Comment: At baseline, pt has no deficits. Currently, pt is difficult to understand Therapist Occupational Required: No Beliefs That Will Affect Care: None Current Living Situation: Spouse Feels Safe at Home: Yes Safety Concerns: Feels Safe At This Time Assistive Devices: None Review of Systems Review of Systems: All systems reviewed & are unremarkable except as noted in HPI & below Physical Exam Physical Exam: Physical Exam: Constitutional: appearance nourished, healthy and normal Ears, Nose, Mouth and Throat: mucous membranes moist, no injection and skin normal, eyes normal, no laceration to tongue Cardiovascular: normal S-1 and S-2 and regular rate and rhythm Respiratory: course breath sounds Musculoskeletal: no peripheral edema and good distal pulses Skin: no stigmata of neurocutaneous disease noted and normal and intact Eyes: extraocular muscles intact (EOMI) NEUROLOGIC EXAMINATION: Mental status: Alert with deep stimulation, knows he is in a hospital, but not which one, [place], does not know why he is in the hospital Oriented to person Speech fluent with no evidence of aphasia Cranial Nerves smile eye brow raise symmetric Reflexes: Deep tendon reflexes were symmetrical and graded 2/5 down going toes Sensory: light cool touch Coordination: finger to nose Gait/Stance: Posture lying in bed Motor: Negative for pronator drift of out stretched arms with eyes closed. Strength: hand blade aligner biceps triceps 5/5 bilaterally hip flex 5/5 bilaterally Results & Data ([facility]) Vital Signs (Past 12 Hours) Vital Signs Temp Pulse Pulse Resp BP Pulse Ox 12/16/21 07:14 36.5 C 90 18 116/75 99 12/16/21 04:17 36.8 C 88 18 111/72 95 12/16/21 00:00 89 12/15/21 23:11 36.9 C 89 16 112/74 99 Laboratory Results Abnormal lab results 12/15/21 12/15/21 12/15/21 Range/Units 06:36 08:03 08:03 RBC (4.7-6.1) M/uL Hgb (14.0-18.0) g/dL Hct (42-52) % MPV (7.4-10.4) fL Chloride (98-107) mmol/L BUN/Creatinine Ratio (10-20) Calcium (8.5-10.1) mg/dl Urine Appearance Cloudy A (Clear) Urine Protein Trace H (Negative) Urine Urobilinogen Positive H (Negative) U Epithel Cells (Auto) >30 H (0-5) /lpf Amorphous Sediment Present A (None Prsent) Urine Mucus Present A (None Prsent) Salicylates < 3.0 L (3.0-30) mg/dl Acetaminophen < 3 L (10-30) ug/ml MDMA (Ecstasy) Screen Pos H (Neg) 12/16/21 12/16/21 Range/Units 06:55 06:55 RBC 3.80 L (4.7-6.1) M/uL Hgb 11.8 L (14.0-18.0) g/dL Hct 34.6 L (42-52) % MPV 11.1 H (7.4-10.4) fL Chloride 111 H (98-107) mmol/L BUN/Creatinine Ratio 5.7 L (10-20) Calcium 8.4 L (8.5-10.1) mg/dl Urine Appearance (Clear) Urine Protein (Negative) Urine Urobilinogen (Negative) U Epithel Cells (Auto) (0-5) /lpf Amorphous Sediment (None Prsent) Urine Mucus (None Prsent) Salicylates (3.0-30) mg/dl Acetaminophen (10-30) ug/ml MDMA (Ecstasy) Screen (Neg) Diagnostic Findings CT head-No acute intracranial abnormality. Similar-appearing punctate hyperdense foci within the brain consistent with artifact. CXR- no acute findings EEG- no seizure focus
--- NOTE | 2021-12-16 08:34 | Electrocardiogram Report ---
Test Reason : Blood Pressure : / mmHG Vent. Rate : 087 BPM Atrial Rate : 087 BPM P-R Int : 140 ms QRS Dur : 096 ms QT Int : 376 ms P-R-T Axes : 080 063 047 degrees QTc Int : 452 ms Normal sinus rhythm Nondiagnostic lateral Q waves Borderline ECG When compared with ECG of 15-DEC-2021 06:30, No significant change was found Confirmed by Checo Malagon ([id number]) on 12/16/2021 8:33:52 AM Referred By: REFERRED SELF Confirmed By:Checo Malagon
[2021-12-16] MEDS: SERTRALINE HCL 50 MG TABLET PO SCH (08:44)
[2021-12-16] MEDS: levETIRAcetam 500 MG in 0.9 % SODIUM CHLORIDE 100 ML IV SCH ×2 (08:45→20:58)
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
--- NOTE | 2021-12-16 13:39 | Electroencephalogram ---
EEG Procedure Note Date of Service December 16, 2021 Start / End Times Start Time: 10:57 End Time: 11:[address] Obregon History A 26-year-old male admitted with new onset seizure. EEG performed for evaluation epileptiform activity. Home Medication List Medication Instructions Recorded Confirmed Type ondansetron 4 mg disintegrating 4 mg PO Q6 PRN #14 tab 12/15/21 Rx tablet sertraline 25 mg tablet 25 mg PO DAILY 12/15/21 12/15/21 History Inpatient Medication List Levetiracetam 500 mg/ Sodium (Chloride) 105 mls @ 420 mls/hr IV Q12H KELLEN Stop: 01/15/22 08:59 Last Infusion: 12/16/21 09:03 Dose: 0 mls/hr Documented by: [id number] Admin: 12/16/21 08:45 Dose: 420 mls/hr Documented by: [id number] Potassium Chloride/Sodium Chloride (Normal Saline W/20 Meq Kcl) 20 meq in 1,000 mls @ 125 mls/hr IV .Q8H KELLEN; Protocol Stop: 12/16/21 22:59 Last Admin: 12/16/21 07:35 Dose: 125 mls/hr Documented by: [id number] Infusion: 12/16/21 07:35 Dose: 125 mls/hr Documented by: [id number] Admin: 12/15/21 23:43 Dose: 125 mls/hr Documented by: [id number] Sertraline HCl (Sertraline Hcl 50 Mg Tablet) 25 mg PO DAILY KELLEN Stop: 01/15/22 08:59 Last Admin: 12/16/21 08:44 Dose: 25 mg Documented by: [id number] Discontinued Medications Sodium Chloride (Nss 1000ml) 1,000 mls @ 999 mls/hr IV .Q1H1M KELLEN Stop: 12/15/21 07:45 Last Infusion: 12/15/21 07:57 Dose: 999 mls/hr Documented by: [id number] Admin: 12/15/21 06:56 Dose: 999 mls/hr Documented by: [id number] Levetiracetam 1,000 mg/ Sodium (Chloride) 110 mls @ 440 mls/hr IV 2030 ONE Stop: 12/15/21 20:44 Last Infusion: 12/15/21 21:16 Dose: 0 mls/hr Documented by: [id number] Admin: 12/15/21 20:55 Dose: 440 mls/hr Documented by: [id number] Lidocaine HCl (Xylocaine 1%/Sod Bicarb 20 Ml Vial) Confirm Administered Dose 20 ml INFIL .[facility] ONE Stop: 12/15/21 09:25 Last Admin: 12/15/21 09:53 Dose: Not Given Documented by: [id number] Ondansetron HCl (Ondansetron Inj 2 Mg/Ml 2 Ml Vial) 4 mg IV NOW STA Stop: 12/15/21 08:43 Last Admin: 12/15/21 08:45 Dose: 4 mg Documented by: [id number] Description This is a 21 electrode EEG with a single channel dedicated to limited EKG. The electrodes were placed in accordance with the International 10-20 system. REPORT: At the onset of the EEG the patient is awake. The background is symmetric. Posterior dominant rhythm is 9-10 Hz. Anteriorly there is low amplitude beta activity. There was a normal anterior to posterior gradient. There is frequent myogenic or electrode artifact from head motion. Photic stimulation does not induce any abnormalities. High hyperventilation is not performed. No stage 2 sleep transients are recorded. Drowsiness is characterized by reduced blink rate, decreased myogenic artifact and increased theta activity. Interpretation This is a normal awake and drowsy routine EEG. Portions of this record are obscured by electrode artifact from patient motion/head rotation. No epileptiform discharges are seen. No electrographic seizures are recorded.
--- NOTE | 2021-12-16 14:00 | CT Scan Report ---
CT soft tissue neck wo con CLINICAL HISTORY: Right Neck swelling/tender COMPARISON STUDY: No previous studies for comparison. CT DOSE: 296.09 mGy.cm TECHNIQUE: Standard CT of the Neck was performed without IV contrast. A dose lowering technique was utilized adhering to the principles of ALARA. FINDINGS: Salivary glands: Parotid and submandibular salivary glands are within normal limits. The thyroid gland is also within normal limits. Lymph nodes: There are no pathologically enlarged lymph nodes. There is no evidence for soft tissue mass within the neck bilaterally. Airway: The cervical airway is widely patent. The epiglottis and aryepiglottic folds are normal bila terally. The vocal cords are symmetric bilaterally. Vascular structures: No gross vascular abnormalities are seen. Paranasal sinuses:The imaged paranasal sinuses are clear. Osseous structures: No acute osseous abnormalities are identified. IMPRESSION: 1. Negative limited noncontrast CT of the soft tissues of the neck. 2. If the patient's symptoms persist, repeat examination with contrast and marker placed at the site of reported swelling would be recommended. ACT 112: Negative or not required by law. Electronically signed by: Glenn Rios M.D. 12/16/2021 1:58 PM
--- NOTE | 2021-12-16 16:33 | Hospitalist Progress Note ---
Date of Service December 16, 2021 Assessment & Plan (1) Seizure-like activity: Plan: Patient is a 26 yr male with H/O PTSD, anxiety, possible history TBI in 1997 (reports mother with history of [place]haus[place] by proxy and patient is unsure of his exact past medical history) presented to ER for reported seizure-like activity today described as several episodes of body stiffening, staring followed by episode of drowsiness and slurred speech. Episodes last 10-15 seconds. No reported seizure activity in past. Seizure-like activity --CT Head:No acute intracranial abnormality. Similar-appearing punctate hyperdense foci within the brain consistent with artifact. --EEG:This is a normal awake and drowsy routine EEG. Portions of this record are obscured by electrode artifact from patient motion/head rotation. No epileptiform discharges are seen. No electrographic seizures are recorded. Continue Keppra 500 mg twice daily Seizure precautions No driving for 6 months Needs outpatient 72/80 Appreciate neurology input Possible intentional ingestion/suicidal attempt Patient cannot leave AMA Meets 302 Criteria until medically cleared as per psychiatry Appreciate psychiatry input Sitter at bedside (2) PTSD (post-traumatic stress disorder): (3) Anxiety: Plan: Continue sertraline Right neck swelling --CT Neck:Negative limited noncontrast CT of the soft tissues of the neck. If the patient's symptoms persist, repeat examination with contrast and marker placed at the site of reported swelling would be recommended. Consider repeat imaging with contrast if no improvement DVT Px SCDs CODE STATUS Full code Admission and Anticipated Discharge Date Admission Date: December 15, 2021 Subjective Patient is seen and examined at bedside States having generalized weakness Denies of suicidal thoughts Also denies any chest pain, shortness breath, dizziness, nausea, abdominal pain Discussed with psychiatry today Review of Systems Review of Systems: All systems reviewed & are unremarkable except as noted in Subjective Physical Exam Physical Exam: Physical Exam: Vitals signs as noted above General Appearance: Thin, frail, no apparent distress Head: normocephalic, Atraumatic Eyes: normal inspection, EOMI Neck: supple, Trachea midline, R minimal swelling, tender Respiratory/Chest: Normal breath sounds, CTA, No accessory muscle use Cardiovascular: S1, S2, No murmur Abdomen/GI:Soft, Non tender, Bowel sounds present Extremities/Musculoskeletal:normal inspection, no edema Neurologic/Psych:AAOX3, grossly no focal neurological deficits Skin: normal color, warm, + multiple tattoos Results & Data Results & Data ([facility]) Vital Signs (Past 12 Hours) Vital Signs Temp Pulse Pulse Resp BP Pulse Ox 12/16/21 15:59 36.7 C 78 16 113/71 98 12/16/21 15:54 82 12/16/21 11:25 36.4 C L 85 18 116/75 100 12/16/21 09:33 89 12/16/21 07:14 36.5 C 90 18 116/75 99 Laboratory Results Short CBC 12/16/21 Range/Units 06:55 WBC 9.54 (4.8-10.8) K/uL Hgb 11.8 L (14.0-18.0) g/dL Hct 34.6 L (42-52) % Plt Count 200 (130-400) K/uL BMP 12/16/21 06:55 Sodium 139 Potassium 4.0 Chloride 111 H Carbon Dioxide 21 BUN 6 Creatinine 1.05 Glucose 81 Calcium 8.4 L Cardiac Enzymes 12/15/21 Range/Units 06:36 Total Creatine Kinase 66 (30-223) U/L
[2021-12-17 06:44] LABS: Hematocrit (blood only) 33.4 % (42-52); Hemoglobin 11.3 g/dL (14.0-18.0); Mean Corpuscular Hgb Conc 33.8 g/dL (32-36); Mean Corpuscular Volume 91.8 fL (80-100); Mean Platelet Volume 11.5 fL (7.4-10.4); Platelet Count 195 K/uL (130-400); RDW Standard Deviation 47.2 fL (36.4-46.3); Red Blood Count 3.64 M/uL (4.7-6.1); White Blood Count 7.33 K/uL (4.8-10.8)
[2021-12-17 07:30] LABS: BUN Creatinine Ratio 5.6 (10-20); Calcium 8.1 mg/dl (8.5-10.1); Creatinine Clr Calc Pharmacy 114.9 ml/min; Est GFR (African American) 136.1 ml/min; Est GFR (Non-African American) 117.5 ml/min
[2021-12-17] MEDS: levETIRAcetam 500 MG in 0.9 % SODIUM CHLORIDE 100 ML IV SCH (09:12)
[2021-12-17] MEDS: SERTRALINE HCL 50 MG TABLET PO SCH (09:12)
[2021-12-17] MEDS ORDERED: NICOTINE POLACRILEX 2 MG GUM MT PRN (11:53)
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
[2021-12-17] MEDS ORDERED: NICOTINE 21 MG/24 HR TDSY TD SCH (12:00)
--- NOTE | 2021-12-17 13:04 | Hospitalist Progress Note ---
Date of Service December 17, 2021 Assessment & Plan (1) Seizure-like activity: Plan: Patient is a 26 yr male with H/O PTSD, anxiety, possible history TBI in 1997 (reports mother with history of Munchhausen by proxy and patient is unsure of his exact past medical history) presented to ER for reported seizure-like activity today described as several episodes of body stiffening, staring followed by episode of drowsiness and slurred speech. Episodes last 10-15 seconds. No reported seizure activity in past. Acute Metabolic Encephalopathy Seizure-like activity --CT Head:No acute intracranial abnormality. Similar-appearing punctate hyperdense foci within the brain consistent with artifact. --EEG:This is a normal awake and drowsy routine EEG. Portions of this record are obscured by electrode artifact from patient motion/head rotation. No epileptiform discharges are seen. No electrographic seizures are recorded. Continue Keppra 500 mg twice daily Seizure precautions Needs outpatient 72 hr EEG Appreciate Neurology input Needs follow up with Neurology upon discharge No driving permitted for 6 months until cleared by Neurology Possible intentional trazodone ingestion/suicidal attempt Patient cannot leave AMA Meets 302 Criteria until medically cleared as per psychiatry Appreciate psychiatry input Sitter at bedside Patient refuses drug overdose (2) PTSD (post-traumatic stress disorder): (3) Anxiety: Plan: Continue sertraline Right neck swelling --CT Neck:Negative limited noncontrast CT of the soft tissues of the neck. If the patient's symptoms persist, repeat examination with contrast and marker placed at the site of reported swelling would be recommended. Consider repeat imaging with contrast if no improvement Resolved DVT Px SCDs CODE STATUS Full code Admission and Anticipated Discharge Date Admission Date: December 16, 2021 Subjective Patient is seen and examined at bedside States feeling well today Refuses suicidal thoughts Offers no complaints No seizure activity overnight Discussed with Neurology and Psychiatry today Denies any chest pain, shortness breath, dizziness, nausea, abdominal pain Review of Systems Review of Systems: All systems reviewed & are unremarkable except as noted in Subjective Physical Exam Physical Exam: Physical Exam: Vitals signs as noted above General Appearance: Thin, frail, no apparent distress Head: normocephalic, Atraumatic Eyes: normal inspection, EOMI Neck: supple, Trachea midline, R minimal swelling resolved Respiratory/Chest: Normal breath sounds, CTA, No accessory muscle use Cardiovascular: S1, S2, No murmur Abdomen/GI:Soft, Non tender, Bowel sounds present Extremities/Musculoskeletal:normal inspection, no edema Neurologic/Psych:AAOX3, grossly no focal neurological deficits Skin: normal color, warm, + multiple tattoos Results & Data Results & Data ([facility]) Vital Signs (Past 12 Hours) Vital Signs Temp Pulse Pulse Resp BP Pulse Ox 12/17/21 11:00 36.5 C 95 H 73 18 124/78 98 12/17/21 07:00 36.8 C 80 20 110/69 99 12/17/21 04:18 36.5 C 78 16 105/71 98 Laboratory Results Short CBC 12/17/21 Range/Units 06:02 WBC 7.33 (4.8-10.8) K/uL Hgb 11.3 L (14.0-18.0) g/dL Hct 33.4 L (42-52) % Plt Count 195 (130-400) K/uL BMP 12/17/21 06:02 Sodium 138 Potassium 4.0 Chloride 110 H Carbon Dioxide 23 BUN 5 L Creatinine 0.90 Glucose 88 Calcium 8.1 L
--- NOTE | 2021-12-17 15:44 | Discharge Summary ---
Date of Service December 17, 2021 Admission HPI Per Admitting Provider Patient is 26-year-old male with PMH PTSD, anxiety, possible history TBI in 1997 (reports mother with history of Munchhausen by proxy and patient is unsure of his exact past medical history) presented to ER for reported seizure-like activity today. History obtained from patient's boyfriend who is at bedside, and outpatient chart review. Patient's boyfriend states he picked him up last night and he seemed to be "a little off" and off balance, and drowsy. He reports that he asked patient if he took any medications or drugs, alcohol, or attempted to harm himself and patient reported "no". He states he slept in the car on the way home and when woke up seemed to be back to baseline. Reports went to bed and this morning woke up at 5 AM and patient was noted to be stiffening his body in bed. Patient boyfriend reports that patient often has night terrors where he will be thrashing around and when he is awaken the thrashing will stop. Reports when he woke patient up this morning patient seemed to be "out of it" and not talking. It is reported that while patient being transferred to hospital by EMS he had approximately 10-second episode of stiffening and staring off. In ER is reported by ER staff the patient had couple episodes of 10 to 15 seconds body stiffening and staring, followed by patient appearing drowsy and having slurred and mumbled speech. Last episode was 1350 today. Currently patient is awake, appears drowsy. Is able to answer some questions however is mumbling his speech. No reported loss of control of bowel or bladder. Boyfriend thinks patient may have bitten his tongue. Reports episode of emesis today. Boyfriend reports patient has been having intermittent dizzy episodes for months. Has seen PCP however he reports patient did not have medical insurance until 12/07/21, so limited workup had been completed. Reports is to follow up with [facility] in the future. Denies any known fever/chills, reported SOB or cough or diarrhea. States patient had one COVID-10 vaccine in 02/2021. Boyfriend reports patient previously used marijuana, thinks he last used in 08/2021. He is unaware of illicit drug use, however he does not live with patient so he isn't sure. He reports patient takes sertraline 25mg daily. He states he used to take other psych medication. Boyfriend reports patient is to follow up with out patient psychiatry. Further ROS, PMH, Social history, unobtainable at this time secondary to patients slurred speech. Outpatient records reviewed on 11/25/2021 had negative urine tox screen Negative HIV testing on 07/28/2021 and 10/28/2021, negative GC, CT, RPR in 10/2021 A1c: 5.4 in 10/30 14 day cafeteria monitor in 11/30: CONCLUSIONS: Final Interpretation Patient had a min HR of 48 bpm, max HR of 190 bpm, and avg HR of 78 bpm. Predominant underlying rhythm was Sinus Rhythm. Isolated SVEs were rare (<1.0%), and no SVE Couplets or SVE Triplets were present. Isolated VEs were rare (<1.0%), and no VE Couplets or VE Triplets were present. The patient submitted 16 event markers which correlated with sinus and sinus tachycardia only Admission Exam Per Admitting Provider Physical Exam Physical Exam: General: no acute distress, WDWN Head: normocephalic, atraumatic Eyes: PERRL, EOM's intact, conjunctiva non-injected, anicteric ENT: normal inspection external ears, nose, mucous membranes moist Neck: supple, trachea midline Lungs: clear, no respiratory distress, no wheezing/rhonchi/rales CV: tachycardia, rate 108, regular rhythm, no murmur, no pretibial edema Abd: normal BS, soft, non-tender Ext: no cyanosis, no erythema, no calf tenderness Neuro: Drowsy, but alert and oriented to 3. Has slurred speech currently and uses fingers to say the date. face is strong and symmetric, tongue midline, no lacerations noted, shoulder shrug intact, patient hesistant to test portfolio analyst strength, after repeat asking, portfolio analyst strength intact bilaterally, slow to move extremities however is able to do so and strength upper and lower extremities 5/5 Skin: warm, dry, +old healed linear scars to forearms and thighs Principal Diagnosis Acute Metabolic Encephalopathy Seizure-like activity suspected drug overdose Discharge Data Allergies Allergy/AdvReac Type Severity Reaction Status Date / Time erythromycin base Allergy Anaphylaxis Verified 12/15/21 14:16 Sulfa (Sulfonamide Allergy Anaphylaxis Verified 12/15/21 14:16 Antibiotics) Consultations 12/15/21 14:15 ED Decision to Admit Stat 12/15/21 15:21 Consult Psychiatry Routine 12/15/21 16:14 Consult Neurology Routine Ordered Studies 12/15/21 06:45 CT head/brain wo con Stat 12/16/21 12:34 CT soft tissue neck wo con Urgent Hospital Course (1) Seizure-like activity: Patient is a 26 yr male with H/O PTSD, anxiety, possible history TBI in 1997 (reports mother with history of Munchhausen by proxy and patient is unsure of his exact past medical history) presented to ER for reported seizure-like activity today described as several episodes of body stiffening, staring followed by episode of drowsiness and slurred speech. Episodes last 10-15 seconds. No reported seizure activity in past. Acute Metabolic Encephalopathy Seizure-like activity --CT Head:No acute intracranial abnormality. Similar-appearing punctate hyperdense foci within the brain consistent with artifact. --EEG:This is a normal awake and drowsy routine EEG. Portions of this record are obscured by electrode artifact from patient motion/head rotation. No epileptiform discharges are seen. No electrographic seizures are recorded. Continue Keppra 500 mg twice daily Seizure precautions Needs outpatient 72 hr EEG Appreciate Neurology input Needs follow up with Neurology upon discharge No driving permitted for 6 months until cleared by Neurology Possible intentional trazodone ingestion/suicidal attempt Patient cannot leave AMA Meets 302 Criteria until medically cleared as per psychiatry Appreciate psychiatry input Sitter at bedside Patient refuses drug overdose (2) PTSD (post-traumatic stress disorder): (3) Anxiety: Continue sertraline Right neck swelling --CT Neck:Negative limited noncontrast CT of the soft tissues of the neck. If the patient's symptoms persist, repeat examination with contrast and marker p laced at the site of reported swelling would be recommended. Consider repeat imaging with contrast if no improvement Resolved DVT Px SCDs CODE STATUS Full code Total Time Total Time Spent Total Time Spent (In Minutes): 47 minutes Discharge Plan Discharge Items Patient Disposition: Home - Self-Care Reason For Visit: SEIZURE LIKE ACTIVITY Discharge Diagnosis: Acute Metabolic Encephalopathy Seizure-like activity suspected drug overdose Activity: Per Instructions section Exercise/Sports: Gradually increase as tolerated Driving/Machine Use: Not permitted until cleared by your Neurologist Non-emergency contact: Primary Care Provider and Psychiatrist Call non-emergency contact if: you have any medication questions, your symptoms worsen, your pain is concerning for you and you have a fever Follow-up/Referrals: Lorelei Alonso PA-C [Primary Care Provider] - Diet: Regular Addtl Attending Provider Instructions: Follow-up with your primary care physician Mariely Rivera PA-C on December 24, 2021 at 12:20 PM Follow-up with your psychiatrist Dr. Sanchez 12/23/21 as scheduled Follow-up with your neurologist Dr.Benjamin Enrrique Salgado in 4 weeks as advised --- No driving permitted for 6 months from last seizure date. Further recommendations as per your neurologist. Seek immediate medical attention if your symptoms reoccur or worsen Please take all medications as instructed on discharge list below. Please call if you have any questions or problems. You can reach a [facility] hospitalist on duty at [facility] 24 hours a day by calling [phone] Pending Studies at Discharge: No Stand-Alone Forms: My [facility], Smoking Cessation Medications and DC Order Prescriptions: New ondansetron 4 mg tablet,disintegrating 4 mg PO Q6 PRN (Reason: nausea and vomiting) Qty: 14 RF: 0 levetiracetam [Keppra] 500 mg tablet 500 mg PO BID Qty: 60 RF: 1 Continued sertraline 25 mg tablet 25 mg PO DAILY RF: 0 Discharge Orders: Discharge Order (Routine); Ordered 12/17/21 Ordered By: Milton Gutierres Admission Data Admit Date/Time: 12/16/21 15:42 Attending Provider: Milton Gutierres Admit Provider: Rocío Obregon Primary Care Provider: Lorelei Alonso Other Providers: Rocío Obregon ; Ivelisse Grey ; Taylor Burk ; Loida Bragg ; Miki Sotelo ; Seth Salgado
[2021-12-18 18:32] LABS: MDA negative; MDEA negative; MDMA (Ecstasy) Urine, Confirm negative
== END 2021-12-17 16:30 | disposition home or self-care (01) | DRG 917 ==
LOC: ED 06:22 → 2S 06:22 → SUATTDRO 14:40 → 2S 15:30